=== PATIENT | female | born 1955 | race Hispanic/Latino ===

== ENCOUNTER 2019-02-13 12:14 | Emergency (ER) | payer MEDICARE, OTHER ==
[2019-02-13] MEDS ORDERED: BOOSTRIX IM ONE (13:17)
--- NOTE | 2019-02-13 13:21 | Emergency Department Report ---
ED Seizure HPI - General Chief Complaint: Seizure Stated Complaint: SEIZURES Time Seen by Provider: 02/13/19 13:11 Source: patient, EMS Mode of arrival: Stretcher Limitations: No Limitations - History of Present Illness Initial Comments: Patient is 63 years old female with history of breast cancer and childhood onset epilepsy. Patient brought to the emergency room after she had one episode of seizure happening at her oncology office. Patient family stated that his typical for a seizure. Patient stated that she was getting imaging for 4 hour coming up radiation and she was stressed out and usually when she is stressed out she will have seizure. Patient stated that she is compliant with her medication. Patient denied any fever or chills. No headache, neck pain, weakness numbness or tingling sensation. No bowel or bladder incontinence. Pa tient is back to her normal baseline. Patient fell and sustained a laceration to the back of the scalp. MD Complaint: seizure -: minutes(s) Description of Episode: loss of consciousness -: minutes(s) Witnessed:: Yes Seizure History: known seizure disorder Possible Precipitating Event: head injury Associated Symptoms: denies other symptoms Treatments Prior to Arrival: none - Related Data Allergies Allergy/AdvReac Type Severity Reaction Status Date / Time Iodinated Contrast- Oral and Allergy Severe Anaphylaxis Verified 02/13/19 14:30 IV Dye ED Review of Systems ROS: Stated complaint: SEIZURES Other details as noted in HPI Comment: All other systems reviewed and negative Constitutional: denies: chills, fever Respiratory: denies: cough, orthopnea, shortness of breath, SOB with exertion, SOB at rest, wheezing Cardiovascular: denies: chest pain, palpitations Gastrointestinal: denies: abdominal pain, nausea, vomiting, diarrhea, constipation, hematemesis, melena, hematochezia Musculoskeletal: denies: back pain Neurological: denies: headache, weakness, numbness, paresthesias, confusion, abnormal gait ED Past Medical Hx - Past Medical History Previous Medical History?: Yes Hx Seizures: Yes Additional medical history: RIGHT BREAST CANCER - Surgical History Past Surgical History?: Yes Hx Breast Surgery: Yes (RIGTH MASTECTOMY) - Social History Smoking Status: Never Smoker Substance Use Type: None ED Physical Exam - General Limitations: No Limitations General appearance: alert, in no apparent distress - Head Head exam: Present: other (3 cm laceration to the back of the scalp.) - Eye Eye exam: Present: normal appearance, PERRL - ENT ENT exam: Present: normal exam, normal orophraynx, mucous membranes moist - Neck Neck exam: Present: normal inspection, full ROM. Absent: tenderness, meningismus, lymphadenopathy, thyromegaly - Respiratory Respiratory exam: Present: normal lung sounds bilaterally - Cardiovascular Cardiovascular Exam: Present: regular rate, normal rhythm, normal heart sounds - GI/Abdominal GI/Abdominal exam: Present: soft, normal bowel sounds. Absent: distended, tenderness, guarding, rebound, rigid, organomegaly, mass, bruit, pulsatile mass, hernia - Extremities Exam Extremities exam: Present: normal inspection, full ROM, normal capillary refill. Absent: pedal edema, calf tenderness - Back Exam Back exam: Present: normal inspection, full ROM. Absent: tenderness, CVA tenderness (R), CVA tenderness (L), muscle spasm, paraspinal tenderness, vertebral tenderness - Neurological Exam Neurological exam: Present: alert, oriented X3, CN II-XII intact - Psychiatric Psychiatric exam: Present: normal mood - Skin Skin exam: Present: warm, normal color ED Course Vital Signs 02/13/19 02/13/19 12:31 12:34 Temperature 97.7 F 97.7 F Pulse Rate 70 70 Respiratory 18 Rate Blood Pressure 142/69 Blood Pressure 142/69 [Left] O2 Sat by Pulse 100 Oximetry - Laceration /Wound Repair Posterior Head Wound Location: head Wound Length (cm): 3 Wound's Depth, Shape: linear Wound Explored: clean Irrigated w/ Saline (ccs): 50 Wound Debrided: minimal Progress: 2 diamond applied to the laceration. No complications ED Medical Decision Making - Lab Data Result diagrams: 02/13/19 13:26 02/13/19 13:26 - Radiology Data Radiology results: report reviewed CT brain is unremarkable. - Medical Decision Making Patient is 63 years old female with history of breast cancer and childhood onset epilepsy. Patient brought to the emergency room after she had one episode of seizure happening at her oncology office. Patient family stated that his typical for a seizure. Patient stated that she was getting imaging for 4 hour coming up radiation and she was stressed out and usually when she is stressed out she will have seizure. Patient stated that she is compliant with her medication. Patient denied any fever or chills. No headache, neck pain, weakness numbness or tingling sensation. No bowel or bladder incontinence. Patient is back to her normal baseline. Patient fell and sustained a laceration to the back of the scalp. No seizure observed in the ER. Patient labs reviewed and is unremarkable. CT brain is negative for acute finding. Laceration to the scalp stapled. Patient advised to follow-up with her primary care physician in the next 2-3 days and to return to the ER if symptoms are not improved. Critical care attestation.: If time is entered above; I have spent that time in minutes in the direct care of this critically ill patient, excluding procedure time. ED Disposition Clinical Impression: Seizure, Head injury, Laceration of scalp Disposition: DC-01 TO HOME OR SELFCARE Is pt being admited?: No Condition: Stable Instructions: Recurrent Seizures Adult (ED), Laceration (ED) Referrals: NAYELY NANCE MD [Primary Care Provider] - 3-5 Days
[2019-02-13 13:46] LABS: Basophils % (Auto) 0.8 % (0.0-1.8); Eosinophils # (Auto) 0.1 K/mm3 (0.0-0.4); Eosinophils % (Auto) 1.3 % (0.0-4.3); Hematocrit 34.7 % (30.3-42.9); Hemoglobin 11.7 gm/dl (10.1-14.3); Lymphocytes # (Auto) 1.5 K/mm3 (1.2-5.4); Lymphocytes % (Auto) 25.6 % (13.4-35.0); Mean Corpuscular HGB Conc 34 % (30-34); Mean Corpuscular Volume 103 fl (79-97); Monocytes # (Auto) 0.4 K/mm3 (0.0-0.8); Monocytes % (Auto) 6.7 % (0.0-7.3); Platelet Count 218 K/mm3 (140-440); Red Blood Count 3.37 M/mm3 (3.65-5.03); Red Cell Distribution Width 11.5 % (13.2-15.2)
[2019-02-13 14:06] LABS: Calcium 9.1 mg/dL (8.4-10.2)
--- NOTE | 2019-02-13 15:46 | Cat Scan Report ---
CT HEAD WITHOUT CONTRAST: HISTORY: Seizure, head injury. TECHNIQUE: Sequential 2.5mm CT images. COMPARISON: none. FINDINGS: Cerebral Parenchyma: Within normal limits. Cerebellum: Within normal limits. Brainstem: Within normal limits. Ventricles: Normal. Sella: Normal. Extra-axial spaces: Normal. Basal Cisterns: Normal. Intracranial Hemorrhage: None. Midline Shift: None. Calvarium: Normal. Sinuses: There is moderate mucosal thickening and fluid in the right maxillary sinus. The remaining visualized sinuses are clear. Mastoid Air Cells: Normal. Visualized Orbits: Normal. IMPRESSION: Cranial CT scan within normal limits. Left maxillary sinus disease.
[2019-02-13 17:00] VITALS: BP 123/73
== END 2019-02-13 17:00 | disposition home or self-care (01) ==
LOC: ED 12:14
DX: S01.01XA Laceration without foreign body of scalp, initial encounter (principal); G40.909 Epilepsy, unspecified, not intractable, without status epilepticus; Z85.3 Personal history of malignant neoplasm of breast; Z91.041 Radiographic dye allergy status; Z90.11 Acquired absence of right breast and nipple; W01.118A Fall on same level from slipping, tripping and stumbling with subsequent striking against other sharp object, initial encounter; Y93.89 Activity, other specified; Y92.89 Other specified places as the place of occurrence of the external cause; Y99.8 Other external cause status
CPT/HCPCS: 36415; 70450; 80048; 80185; 85025; 90471; 90715

== ENCOUNTER 2019-04-10 12:22 | Outpatient (CLI) | payer MEDICARE ==
--- NOTE | 2019-04-10 13:41 | Mammography Report ---
BONE DEXA CLINICAL: Postmenopausal and history of breast cancer. TECHNIQUE: 2 site bone DEXA performed on an Hologic scanner. FINDINGS: The average BMD of the lumbar spine L1-L4 is 0.861g/cm squared with a T score of -1.7 and a Z score o f -0.2. The average total BMD of the right hip is 0.745 g/cm squared with a T score of -1.6and a Z score of - 0.6. The right femoral neck BMD is 0.569g/cm squared with a T score of -2.5 and a Z score of -1.2. IMPRESSION: 1. WHO classification: Osteopenia with increased fracture risk based on spine measurements. 2. WHO classification Osteoporosis with high fracture risk based on right femoral neck measurements. RECOMMENDATION: Clinical correlation and routine screening. Definitions: BMD equal bone mineral density T score = BMD related to peak bone mass of young adult ([place] expressed an standard deviation) Z score = age-matched BMD expressed in SD World health organization (WHO) diagnostic criteria Normal T score greater than equal to 1 standard deviation Osteopenia T score between -1 and -2.4 standard deviation Osteoporosis T score -2.5 standard deviation or below. Note: BMD is not the only risk factor for fracture; also consider factors such as the patient's age, risk of falling, previous osteoporotic fracture, family history of osteoporotic fractures, current sm oker and low body weight. Z scores are not calculated if greater than 80 years of age. Signer Name: Brett Cope MD Signed: 04/10/2019 1:37 PM Workstation Name: [id number]
== END 2019-04-10 12:23 | disposition home or self-care (01) ==
LOC: MAMMO 12:22
DX: M81.0 Age-related osteoporosis without current pathological fracture (principal); M85.88 Other specified disorders of bone density and structure, other site; C50.411 Malignant neoplasm of upper-outer quadrant of right female breast; Z78.0 Asymptomatic menopausal state
CPT/HCPCS: 77080